=== PATIENT | male | born 1980 | race American Indian/Alaskan Native ===

== ENCOUNTER 2017-12-25 14:07 | Emergency (ER) | payer SELFPAY ==
[2017-12-25] MEDS ORDERED: TYLENOL ONE (14:54)
[2017-12-25 16:37] VITALS: BP 152/97
--- NOTE | 2017-12-25 17:10 | Emergency Department Report ---
Chief Complaint: Fever Stated Complaint: C/P, SOB, BODY PAIN Time Seen by Provider: 12/25/17 17:03 - HPI History of Present Illness: States that when he coughs his chest hurts, started today, says he has dolan a cold for the last 2 days, eyes burning, red, has body aches, BP has gone up, says he is getting light headed, states that his kids were sick with a virus. They were put on ibuprofen. No sore throat. No NVD. No runny nose, no congestion. - ROS Review of Systems: As stated in HPI - Exam Vital Signs: Vital Signs 12/25/17 12/25/17 14:57 16:00 Temperature 101.8 F H 100.9 F H Pulse Rate 143 H 133 H Respiratory 16 18 Rate Blood Pressure 147/98 Blood Pressure 152/97 [Left] O2 Sat by Pulse 96 97 Oximetry Physical Exam: NAD CTA RRR NT ND +BS MSE screening note: Focused history and physical exam performed. Due to findings the following was ordered: Will get CXR, he does have a fever, likely to be flu, will make sure no pneumonia is present. ED Disposition for MSE Condition: Stable Referrals: PRIMARY CARE, [Primary Care Provider] - 3-5 Days
[2017-12-25] MEDS ORDERED: NACL 0.9% 1000 ML 1,000 ML IV ONE (17:38)
[2017-12-25] MEDS ORDERED: ZOFRAN IV ONE (17:39)
[2017-12-25] MEDS ORDERED: MOTRIN PO ONE (17:39)
--- NOTE | 2017-12-25 17:41 | Emergency Department Report ---
ED General Adult HPI - General Chief complaint: Fever Stated complaint: C/P, SOB, BODY PAIN Time Seen by Provider: 12/25/17 17:03 Source: patient Mode of arrival: Ambulatory Limitations: No Limitations - History of Present Illness Initial comments: States that when he coughs his chest hurts, started today, says he has dolan a cold for the last 2 days, eyes burning, red, has body aches, BP has gone up, says he is getting light headed, states that his kids were sick with a virus. They were put on ibuprofen. No sore throat. No NVD. No runny nose, no congestion. Onset/Timin -: days(s), week(s) Location: head Radiation: non-radiation Severity scale (0 -10): 4 Quality: aching Consistency: constant Improves with: none Worsens with: movement Associated Symptoms: cough, fever/chills, headaches, loss of appetite, malaise. denies: nausea/vomiting, rash, seizure, shortness of breath, syncope, weakness Treatments Prior to Arrival: none - Related Data Previous Rx's Medication Instructions Recorded Last Taken Type Dextromethorphn/Acetaminoph/Cp 1 each PO BID PRN #24 tablet 12/25/17 Unknown Rx [Coricidin Hbp Flu Tablet] Ibuprofen 800 mg PO TID PRN #30 tablet 12/25/17 Unknown Rx Allergies Allergy/AdvReac Type Severity Reaction Status Date / Time shrimp Allergy Unknown Verified 12/25/17 15:07 ED Review of Systems ROS: Stated complaint: C/P, SOB, BODY PAIN Other details as noted in HPI Constitutional: denies: chills, fever Eyes: denies: eye pain, eye discharge, vision change ENT: congestion. denies: ear pain, throat pain Respiratory: denies: cough, shortness of breath, wheezing Cardiovascular: denies: chest pain, palpitations, paroxysmal nocturnal dyspnea Endocrine: no symptoms reported Gastrointestinal: denies: abdominal pain, nausea, diarrhea Genitourinary: denies: urgency, dysuria, frequency, hematuria, discharge Musculoskeletal: denies: back pain, joint swelling, arthralgia Skin: denies: rash, lesions Neurological: denies: headache, weakness, paresthesias Psychiatric: denies: anxiety, depression Hematological/Lymphatic: denies: easy bleeding, easy bruising ED Past Medical Hx - Past Medical History Previous Medical History?: No - Surgical History Past Surgical History?: No - Social History Smoking Status: Never Smoker - Medications Home Medications: Home Medications Medication Instructions Recorded Confirmed Last Taken Type Dextromethorphn/Acetaminoph/Cp 1 each PO BID PRN #24 tablet 12/25/17 Unknown Rx [Coricidin Hbp Flu Tablet] Ibuprofen 800 mg PO TID PRN #30 tablet 12/25/17 Unknown Rx ED Physical Exam - General Limitations: No Limitations General appearance: alert, in no apparent distress - Head Head exam: Present: atraumatic, normocephalic - Eye Eye exam: Present: normal appearance - ENT ENT exam: Present: mucous membranes moist - Expanded ENT Exam Expanded Ear exam: Present: normal external inspection Mouth exam: Present: normal external inspection Teeth exam: Present: normal inspection Throat exam: Positive: tonsillar erythema. Negative: tonsillomegaly, tonsillar exudate, R peritonsillar mass, L peritonsillar mass - Neck Neck exam: Present: normal inspection, full ROM. Absent: tenderness, meningismus, lymphadenopathy, thyromegaly - Respiratory Respiratory exam: Present: normal lung sounds bilaterally. Absent: respiratory distress, wheezes, rhonchi, stridor, chest wall tenderness - Cardiovascular Cardiovascular Exam: Present: normal rhythm, normal heart sounds. Absent: systolic murmur, diastolic murmur, rubs, gallop - GI/Abdominal GI/Abdominal exam: Present: soft, normal bowel sounds. Absent: distended, tenderness, guarding, rebound, rigid, organomegaly, mass, bruit, pulsatile mass , hernia - Rectal Rectal exam: Present: deferred - Extremities Exam Extremities exam: Present: normal inspection - Back Exam Back exam: Present: normal inspection, full ROM. Absent: tenderness, CVA tenderness (R), CVA tenderness (L), muscle spasm, paraspinal tenderness, vertebral tenderness, rash noted - Neurological Exam Neurological exam: Present: alert, oriented X3 - Psychiatric Psychiatric exam: Present: normal affect, normal mood - Skin Skin exam: Present: warm, dry, intact, normal color. Absent: rash ED Course Vital Signs 12/25/17 12/25/17 12/25/17 14:57 16:00 18:51 Temperature 101.8 F H 100.9 F H Pulse Rate 143 H 133 H Respiratory 16 18 20 Rate Blood Pressure 147/98 Blood Pressure 152/97 [Left] O2 Sat by Pulse 96 97 Oximetry ED Medical Decision Making - Lab Data Result diagrams: 12/25/17 17:42 12/25/17 17:42 - EKG Data EKG shows normal: sinus rhythm Rate: tachycardia - EKG Data Interpretation: other EKG interp by ED attending, amos STEMI 12/25/17 19:49 - Radiology Data Radiology results: report reviewed, image reviewed no opacities no infiltrates - Medical Decision Making Patient has eloped prior to completion of treatment however patient presented for flulike symptoms cough malaise bodyaches fever 2 days there is no nausea vomiting T maximum of 2.1 verbal at home patient was tolerating by mouth intake labs noted mild dehydration patient given normal saline 1 L Zofran 4 mg chest x- ray normal no infiltrates noted pneumonia again patient has eloped prior to receiving discharge last labs signs patient is A/ O 3 ambulatory K stated in no acute distress. unable to obtain last vital signs as pt has eloped prior to receiving discharge instructions. Critical care attestation.: If time is entered above; I have spent that time in minutes in the direct care of this critically ill patient, excluding procedure time. ED Disposition Clinical Impression: URI (upper respiratory infection) Qualifiers: URI type: unspecified viral URI Qualified Code(s): J06.9 - Acute upper respiratory infection, unspecified Disposition: DC- TO HOME OR SELFCARE Is pt being admited?: No Does the pt Need Aspirin: No Condition: Good Instructions: Upper Respiratory Infection (ED) Prescriptions: Dextromethorphn/Acetaminoph/Cp [Coricidin Hbp Flu Tablet] 1 each PO BID PRN #24 tablet PRN Reason: cough congestion Ibuprofen 800 mg PO TID PRN #30 tablet PRN Reason: pain and fever Referrals: PRIMARY CARE, [Primary Care Provider] - 3-5 Days Forms: Work/School Release Form(ED) Time of Disposition: 19:57
[2017-12-25 18:12] LABS: Alanine Aminotransferase 26 units/L (7-56); Albumin 4.1 g/dL (3.9-5); BUN/Creatinine Ratio 18; Blood Urea Nitrogen 16 mg/dL (9-20); Calcium 9.1 mg/dL (8.4-10.2); Hemolysis Index 1
--- NOTE | 2017-12-25 18:19 | XRay Report ---
FINAL REPORT EXAM: XR CHEST ROUTINE 2V HISTORY: cough fever TECHNIQUE: Two view chest PA and lateral PRIORS: None. FINDINGS: Cardiac and mediastinal contours are unremarkable. No focal pulmonary infiltrate is identified. No pleural fluid collection seen. Pulmonary vasculature is unremarkable. IMPRESSION: Negative two-view chest
[2017-12-25 18:24] LABS: Basophils % (Auto) 0.5 % (0.0-1.8); Eosinophils % (Auto) 0.5 % (0.0-4.3); Hematocrit 46.8 % (35.5-45.6); Hemoglobin 14.9 gm/dl (11.8-15.2); Lymphocytes # (Auto) 1.6 K/mm3 (1.2-5.4); Lymphocytes % (Auto) 22.1 % (13.4-35.0); Mean Corpuscular HGB Conc 32 % (32-34); Mean Corpuscular Volume 73 fl (84-94); Monocytes # (Auto) 1.1 K/mm3 (0.0-0.8); Monocytes % (Auto) 15.1 % (0.0-7.3); Platelet Count 192 K/mm3 (140-440); Red Cell Distribution Width 15.3 % (13.2-15.2)
[2017-12-25 18:31] LABS: Mean Corpuscular Hemoglobin 23 pg (28-32)
== END 2017-12-25 20:10 | disposition home or self-care (01) ==
LOC: ED 14:07
DX: J06.9 Acute upper respiratory infection, unspecified (principal); Z91.013 Allergy to seafood
CPT/HCPCS: 36415; 71046; 80053; 85025; 93005; 93010; 96361; 96374; 99284; J2405; J7030